=== PATIENT | female | born 1965 | race Asian ===

== ENCOUNTER 2023-08-05 19:58 | Emergency (ER) | payer BC ==
[~2023-08-05] VITALS: Ht 157.5 cm; Wt 78.9 kg
[2023-08-05 20:30] VITALS: BP_SYST 140; PULSE 78; RESP 16; TEMP 97.3; O2SAT 98
[2023-08-05] MEDS ORDERED: KETOROLAC TROMETHAMINE 60 MG/2 ML VIAL IM ONE (22:00)
[2023-08-06] MEDS ORDERED: CELE100C PO (00:58)
[2023-08-06 01:05] VITALS: BP_SYST 135; PULSE 75; RESP 17; TEMP 97.6; O2SAT 97
== END 2023-08-06 01:05 | disposition home or self-care (01) ==
LOC: SED 19:58
DX: M79.661 Pain in right lower leg (principal); M13.88 Other specified arthritis, other site; Z79.899 Other long term (current) drug therapy
CPT/HCPCS: 99285; 29515; 96372; 93970; J1885